=== PATIENT | female | born 1975 | race Caucasian/White ===

== ENCOUNTER 2019-04-06 09:32 | Inpatient (IN) | payer SELFPAY ==
[~2019-04-06] VITALS: Ht 172.7 cm; Wt 97.7 kg
[2019-04-06 10:20] LABS: Urine Amorphous Crystal FEW /hpf (None Seen); Urine Bacteria NONE SEEN /hpf (None Seen); Urine Blood Negative /uL (Negative); Urine Hyaline Cast MOD /lpf (0 - 2); Urine Mucus FEW (None Seen); Urine Specific Gravity 1.023 (1.001-1.035); Urine WBC 6 /hpf (0 - 5)
[2019-04-06 10:21] LABS: Hemoglobin 12.3 g/dL (12.2-16.2); Mean Corpuscular Hgb Conc. 33.4 g/dL (32.0-36.0)
[2019-04-06 10:23] LABS: Basophils # (auto) 0.4 uL; Basophils % (auto) 1.2 % (0.0-2.0); Eosinophils # (auto) 0.1 uL; Eosinophils % (auto) 0.3 % (0.0-7.0); Lymphocytes # (auto) 3.4 uL; Lymphocytes % (auto) 10.9 % (10.0-50.0); Mean Corpuscular Volume 110.9 fL (80.0-100.0); Monocytes # (auto) 2.2 uL; Monocytes % (auto) 7.1 % (0.0-12.0); Neutrophils % (auto) 80.5 % (37.0-80.0); Nucleated Red Blood Cells % 0.3 %; Platelet Count (auto) 296 10^3/uL (140-450); Red Blood Cells 3.33 10^6/uL (4.0-5.20); Red Cell Distribution Width 16.8 % (11.8-14.3)
[2019-04-06 10:29] LABS: White Blood Cell 31.1 10^3/uL (4.4-10.8)
[2019-04-06 10:45] LABS: Albumin 1.7 g/dL (3.4-5.0); Calcium 7.3 mg/dL (8.5-10.1)
[2019-04-06 10:48] LABS: BUN/Creatinine Ratio 4.8; Bilirubin, Total 13.9 mg/dL (0.2-1.0); Total Protein 6.7 g/dL (6.4-8.2)
[2019-04-06 10:52] LABS: Potassium 2.4 mmol/L (3.5-5.1)
[2019-04-06] MEDS ORDERED: SODIUM CHLORIDE 0.9% 1,000 ML IV ONE (10:59)
[2019-04-06 11:22] LABS: Magnesium 1.8 mg/dL (1.6-2.6)
[2019-04-06 11:28] LABS: Lactic Acid w/Reflex 3.5 mmol/L (0.4-2.0)
[2019-04-06 11:30] LABS: INR 2.93 (0.9-1.15); Partial Thromboplastin Time 34.9 sec (23.64-32.05)
[2019-04-06] MEDS ORDERED: cefTRIAXone 1GM/50ML D5W 50 ML IV ONE ×2 (12:11→12:15)
[2019-04-06] MEDS ORDERED: LACTULOSE 20Gm/30ML SOLN PO ONE (12:30)
[2019-04-06] MEDS ORDERED: FUROSEMIDE 40 MG/4 ML VIAL IV ONE (12:30)
[2019-04-06] MEDS ORDERED: POTASSIUM CHLORIDE 40 MEQ, LIDOCAINE 1% (LOCAL ANESTH.) 4 ML in SODIUM CHL 0.9% 100 ML IV ONE (12:45)
[2019-04-06] MEDS ORDERED: ACETAMINOPHEN 500 MG TAB PO PRN (13:30)
[2019-04-06] MEDS ORDERED: MORPHINE SULF INJ 2 MG/ML SYRINGE 1ML IV PRN (13:30)
[2019-04-06] MEDS ORDERED: NITROGLYCERIN 0.4 MG SL TAB SL PRN (13:30)
[2019-04-06] MEDS ORDERED: ONDANSETRON HCL 4 MG/2 ML VIAL IV PRN (13:30)
[2019-04-06] MEDS: metroNIDAZOLE 500MG/100ML 100 ML IV SCH ×2 (14:00→22:00)
[2019-04-06] MEDS ORDERED: AZITHROMYCIN 500MG/ 250ML 250 ML IV SCH (14:34)
[2019-04-06] MEDS: FOLIC ACID 1 MG, MULTIPLE VITAMIN 10 ML, MAGNESIUM SULF SDV 50% 8 MEQ, THIAMINE INJ 100... INJ SCH ×5 (15:07)
--- NOTE | 2019-04-06 16:15 | NUR ---
Telemetry admit from ER Verbal report received from YANCY Johnston, ER nurse. Patient is awake, alert and oriented X4. No signs or symptoms of distress, shortness of breath or pain. Tele# 33, sinus tachycardia @ 121 bpm. IV to left hand, 20 gauge, patent and infusing Banana bag @ 125 ml/hr. Instructed on plan of care, verbalized understanding. Bed locked, in lowest position, call light within reach, will continue to monitor Q 1 hour and PRN.
[2019-04-06 16:17] LABS: Amphetamine Screen, Urine NEGATIVE (NEGATIVE); Barbiturate Scree,Urine NEGATIVE (NEGATIVE); Cannabinoid Screen, Urine NEGATIVE (NEGATIVE)
[2019-04-06 16:20] LABS: Benzodiazephine Screen, Urine NEGATIVE (NEGATIVE); Cocaine Screen, Urine NEGATIVE (NEGATIVE); Opiate Scree,Urine NEGATIVE (NEGATIVE); Phencyclidine Screen, Urine NEGATIVE (NEGATIVE)
[2019-04-06 16:24] VITALS: BP 129/66
[2019-04-06 16:55] VITALS: BP 129/66
[2019-04-06] MEDS: PENTOXIFYLLINE 400 MG ER TAB PO SCH (17:50)
--- NOTE | 2019-04-06 18:47 | NUR ---
TESS BECK states they want to leave the floor Against Medical Advice (AMA) to go outside and smoke. Patient encouraged to stay on floor and not smoke. Patient advised of the risks and benefits of leaving AMA. Patient verbalized understanding and signed required AMA form.
--- NOTE | 2019-04-06 19:15 | NUR ---
Opening Shift Note Received report from carolyn Lobato RN. Assumed care of patient, awake and alert. No S/S of distress/SOB or pain. Instructed on POC and to call for assist PRN, will continue to monitor for changes Q1hr and PRN. Bed placed in lowest position, bed alarm turned on and call light within reach.
[2019-04-06 20:00] VITALS: BP 147/103
[2019-04-06 22:00] VITALS: BP 120/61
[2019-04-06] MEDS ORDERED: FAMOTIDINE (10MG/ML) 2ML VL IV SCH (22:00)
[2019-04-06] MEDS: LACTULOSE 20Gm/30ML SOLN PO SCH (22:01)
--- NOTE | 2019-04-06 23:15 | NUR ---
INFLUENZA A & B SPECIMEN AND STREP THROAT SPECIMEN SENT TO LAB.
[2019-04-07] MEDS: MORPHINE SULF INJ 2 MG/ML SYRINGE 1ML IV PRN ×2 (02:05→22:58)
[2019-04-07 05:00] VITALS: BP 120/52
[2019-04-07 05:53] LABS: Hemoglobin 10.4 g/dL (12.2-16.2); Mean Corpuscular Hemoglobin 37.5 pg (28.0-32.0); Mean Corpuscular Hgb Conc. 33.7 g/dL (32.0-36.0); Mean Corpuscular Volume 111.3 fL (80.0-100.0); Platelet Count (auto) 247 10^3/uL (140-450); Red Blood Cells 2.78 10^6/uL (4.0-5.20); Red Cell Distribution Width 16.1 % (11.8-14.3); White Blood Cell 26.5 10^3/uL (4.4-10.8)
[2019-04-07 05:54] LABS: Basophils % (manual) 0 (0.0-2.0); Blast Cells 0; Eosinophils % (manual) 0 (0-7); Metamyelocytes % 0; Myelocytes % 0; Promyelocytes % 0; Reactive Lymphocytes 0
[2019-04-07 06:09] LABS: Albumin 1.4 g/dL (3.4-5.0); Calcium 6.5 mg/dL (8.5-10.1)
[2019-04-07 06:12] LABS: BUN/Creatinine Ratio 9.4; Bilirubin, Total 12.4 mg/dL (0.2-1.0); Total Protein 5.7 g/dL (6.4-8.2)
[2019-04-07] MEDS: metroNIDAZOLE 500MG/100ML 100 ML IV SCH (06:26)
--- NOTE | 2019-04-07 06:45 | NUR ---
ARI DYSON FROM LAB REPORTS A POTASSIUM OF 2.0. HOSPITALIST PAGED. AWAITING CALL BACK.
--- NOTE | 2019-04-07 06:50 | NUR ---
CALLED BACK AND RECEIVED AN ORDER FOR POTASSIUM 60MG PO ONE TIME. ORDER NOTED. Addendum: 04/07/19 at 0710 by MERVIN YOUNG RN RN 60 MEQ POTASSIUM TIMES ONE DOSE PO
[2019-04-07] MEDS ORDERED: POTASSIUM CHL 20 Meq TABLET PO ONE ×2 (07:00→20:00)
[2019-04-07 07:08] LABS: Band Neutrophils % (manual) 4; Lymphocytes % (manual) 8 (10.0-50.0); Monocytes % (manual) 10 (0-12)
[2019-04-07 08:40] VITALS: BP 110/62
[2019-04-07] MEDS: PENTOXIFYLLINE 400 MG ER TAB PO SCH ×3 (09:13→18:23)
[2019-04-07] MEDS ORDERED: POTASSIUM CHLORIDE 60 MEQ, LIDOCAINE 1% (LOCAL ANESTH.) 6 ML in SODIUM CHL 0.9% 500 ML IV ONE (10:30)
[2019-04-07] MEDS ORDERED: cefTRIAXone 1GM/50ML D5W 50 ML IV ONE (10:30)
[2019-04-07] MEDS: LACTULOSE 20Gm/30ML SOLN PO SCH (11:50)
--- NOTE | 2019-04-07 11:50 | NUR ---
ROUNDS Dr Daly at bedside for rounds, new orders received and followed through. Patient updated on plan of care, verbalized understanding.
[2019-04-07] MEDS: FAMOTIDINE 20 MG TAB PO SCH (11:51)
--- NOTE | 2019-04-07 11:55 | NUR ---
GI Dr Borthers at bedside for rounds, new orders received and followed through. Patient updated on plan of care, verbalized understanding.
[2019-04-07] MEDS ORDERED: LEVOTHYROXINE SODIUM 25 MCG TAB PO ONE (12:00)
[2019-04-07] MEDS: FOLIC ACID 1 MG, MULTIPLE VITAMIN 10 ML, MAGNESIUM SULF SDV 50% 8 MEQ, THIAMINE INJ 100... INJ SCH ×5 (12:00)
[2019-04-07 12:11] LABS: Acetaminophen < 2.0 ug/mL (10-30); Salicylate < 0.2 mg/dL (2.8-20.0)
[2019-04-07 12:56] VITALS: BP 103/52
[2019-04-07] MEDS ORDERED: IOHEXOL 300 MG/ML 100ML BOTTLE IJ ONE (14:45)
[2019-04-07 17:06] VITALS: BP 117/65
[2019-04-07] MEDS: MAGNESIUM SULFATE 1GM/100ML 100 ML IV SCH ×4 (18:23→22:21)
[2019-04-07] MEDS ORDERED: MAGNESIUM SULFATE 1GM/100ML 100 ML IV ONE (18:34)
--- NOTE | 2019-04-07 18:46 | NUR ---
K+ Dr Daly informed of K+ 2.3, new order for P.O. KCL.
--- NOTE | 2019-04-07 19:00 | NUR ---
Opening Shift Note Assumed care of patient, awake and alert. No S/S of distress/SOB or pain. Instructed on POC and to call for assist PRN, will continue to monitor for changes Q1hr and PRN.
--- NOTE | 2019-04-07 19:20 | NUR ---
Care endorsed to YANCY So, night nurse.
--- NOTE | 2019-04-07 21:30 | NUR ---
Hospitalist paged: Hospitalist paged d/t patient stating she would like medication to help with insomnia d/t her having some difficulty sleeping last night. Hospitalist was paged and page was returned immediately. Hospitalist informed of patient's condition and situation. New order received and verified.
[2019-04-07 21:43] VITALS: BP 121/69
[2019-04-07] MEDS ORDERED: TEMAZEPAM 15 MG CAP PO PRN (21:45)
--- NOTE | 2019-04-08 03:47 | NUR ---
IV pulled out: Patient accidentally pulled out Right FA 20g IV. RN noted IV to be intact. Patient in no current distress or discomfort.
[2019-04-08 04:41] VITALS: BP 131/70
[2019-04-08 05:08] LABS: White Blood Cell 25.7 10^3/uL (4.4-10.8)
[2019-04-08 05:11] LABS: Hematocrit 29.6 % (36.0-46.0); Mean Corpuscular Hemoglobin 37.7 pg (28.0-32.0); Mean Corpuscular Hgb Conc. 33.8 g/dL (32.0-36.0); Mean Corpuscular Volume 111.5 fL (80.0-100.0); Platelet Count (auto) 263 10^3/uL (140-450); Red Blood Cells 2.66 10^6/uL (4.0-5.20); Red Cell Distribution Width 15.7 % (11.8-14.3)
[2019-04-08 05:17] LABS: Basophils % (manual) 0 (0.0-2.0); Blast Cells 0; Eosinophils % (manual) 0 (0-7); Metamyelocytes % 0; Myelocytes % 0; Promyelocytes % 0; Reactive Lymphocytes 0
[2019-04-08 05:23] LABS: INR 1.93 (0.9-1.15)
[2019-04-08 05:30] LABS: Albumin 1.4 g/dL (3.4-5.0); Calcium 6.6 mg/dL (8.5-10.1); Magnesium 2.3 mg/dL (1.6-2.6)
[2019-04-08 05:32] LABS: BUN/Creatinine Ratio 7.4
[2019-04-08 05:34] LABS: Bilirubin, Total 14.1 mg/dL (0.2-1.0); Total Protein 5.7 g/dL (6.4-8.2)
[2019-04-08 05:51] LABS: Potassium 2.6 mmol/L (3.5-5.1)
--- NOTE | 2019-04-08 05:55 | NUR ---
Critical lab support tech notified by lab of critical potassium of 2.6. Hospitalist paged, awaiting call back.
[2019-04-08 06:00] LABS: Band Neutrophils % (manual) 9; Lymphocytes % (manual) 6 (10.0-50.0); Monocytes % (manual) 11 (0-12)
--- NOTE | 2019-04-08 06:17 | NUR ---
Hospitalist returned page: Hospitalist returned page. Hospitalist updated on patient condition and situation. New orders received and verified.
[2019-04-08] MEDS ORDERED: POTASSIUM CHL 20 Meq TABLET PO ONE ×2 (06:30→10:15)
[2019-04-08] MEDS: LEVOTHYROXINE SODIUM 25 MCG TAB PO SCH (06:33)
--- NOTE | 2019-04-08 07:15 | NUR ---
Opening Shift Note Assumed care of patient, awake and alert. No S/S of distress/SOB or pain. Instructed on POC and to call for assist PRN, will continue to monitor for changes Q1hr and PRN. Fall precautions in place per safety protocol.
[2019-04-08] MEDS: PENTOXIFYLLINE 400 MG ER TAB PO SCH ×3 (08:21→20:03)
[2019-04-08 09:00] VITALS: BP 119/69
[2019-04-08] MEDS ORDERED: cefTRIAXone 1GM/50ML D5W 50 ML IV SCH (09:00)
[2019-04-08] MEDS: LACTULOSE 20Gm/30ML SOLN PO SCH (10:00)
[2019-04-08] MEDS: AZITHROMYCIN 500MG/ 250ML 250 ML IV SCH (10:10)
[2019-04-08] MEDS: FAMOTIDINE 20 MG TAB PO SCH (10:11)
[2019-04-08] MEDS ORDERED: POTASSIUM CHLORIDE 60 MEQ, LIDOCAINE 1% (LOCAL ANESTH.) 6 ML in SODIUM CHL 0.9% 500 ML IV ONE (10:15)
[2019-04-08 10:17] LABS: Hepatitis A Ab IgM Negative; Hepatitis B Core IgM Negative; Hepatitis B Surface Antigen Negative (Negative)
[2019-04-08 10:18] LABS: Hepatitis C Antibody Negative (Negative)
[2019-04-08 13:00] VITALS: BP 97/58
[2019-04-08] MEDS ORDERED: VANCOMYCIN PER PHARMACY 0 MG IV SCH (14:00)
[2019-04-08] MEDS ORDERED: KETOROLAC TROMETH 30 MG/ML 1ML VIAL IV PRN (14:00)
[2019-04-08] MEDS ORDERED: SPIRONOLACTONE 25 MG TAB PO ONE (14:00)
--- NOTE | 2019-04-08 14:00 | NUR ---
HOSPITALIST AT BEDSIDE MD PLATT AT BEDSIDE, AWARE OF PATIENT STATUS. NEW ORDERS RECEIVED, WILL CARRY OUT NEW ORDERS AND WILL CONT TO CARE FOR PATIENT.
[2019-04-08] MEDS: PIPERACILLIN-TAZO 4.5GM 100 ML IV SCH ×2 (15:00→22:04)
[2019-04-08] MEDS ORDERED: VANCOMYCIN 1,500 MG in D5W 5% 250 ML IV ONE (16:00)
[2019-04-08 17:37] VITALS: BP 121/60
[2019-04-08] MEDS: VANCOMYCIN 1GM/250ML 250 ML IV SCH (18:00)
--- NOTE | 2019-04-08 19:05 | NUR ---
Opening Shift Note Assumed care of patient, awake and alert. No S/S of distress/SOB or pain. Bed in lowest locked position, side rails up x2, call light within reach. Instructed on POC and to call for assist PRN, will continue to monitor for changes Q1hr and PRN. Addendum: 04/09/19 at 0006 by TAMEKA SCHREIBER RN RN CORRECTION: Time of note should be 19:15
--- NOTE | 2019-04-08 19:15 | NUR ---
Endorsed care Care endorsed to RN Jeannette. Patient is resting in bed at this time, no signs of distress/sob or pain noted at this time.
--- NOTE | 2019-04-08 20:00 | NUR ---
IV insertion IV access obtained, via clean sterile technique by inserting 22 gauge catheter to patient's right forearm after one attempt by Judah HAINES. IV secured properly. No trauma to site. Patient tolerated well. IV to left hand remains patent and asymptomatic, continues to run ordered Potassium. Per dayshift RN report, unable to administer ordered 15:00 Zosyn and 18:00 Vancomycin as ordered (see emar) due to patient going down to smoke and inability to obtain second venous access during that time. Will administer antibiotics as ordered through right forearm IV and continue to monitor Potassium administration. Will continue care.
[2019-04-08] MEDS: HYDROcodone-ACET 5/325MG TAB PO PRN (22:03)
[2019-04-08 22:20] VITALS: BP 106/59
--- NOTE | 2019-04-09 02:00 | NUR ---
Spoke with billing control clerk pharmacy regarding ordered electrolyte bag administration. Per pharmacy, ok to give now. Will administer and continue to monitor.
[2019-04-09] MEDS: VANCOMYCIN 1GM/250ML 250 ML IV SCH ×3 (02:03→18:34)
[2019-04-09] MEDS: FOLIC ACID 1 MG, MULTIPLE VITAMIN 10 ML, MAGNESIUM SULF SDV 50% 8 MEQ, THIAMINE INJ 100... INJ SCH ×10 (02:04→15:30)
--- NOTE | 2019-04-09 03:00 | NUR ---
IV removal IV to left hand noted to be leaking. IV DC'd with clean sterile technique, catheter fully intact. Pressure dressing applied to site. Patient tolerated well. IV access attempted by Judah HAINES, unable to obtain at this time. Ordered electrolytes infusing through right forearm IV. Will continue to attempt IV insertion for ordered antibiotics. 03:00 Zosyn held at this time. Will continue care.
[2019-04-09] MEDS: HYDROcodone-ACET 5/325MG TAB PO PRN (04:03)
[2019-04-09] MEDS: LEVOTHYROXINE SODIUM 25 MCG TAB PO SCH (05:06)
[2019-04-09] MEDS: PIPERACILLIN-TAZO 4.5GM 100 ML IV SCH ×4 (05:06→20:48)
[2019-04-09 05:22] VITALS: BP 105/63
--- NOTE | 2019-04-09 05:50 | NUR ---
IV insertion IV access obtained by Nikki HAINES via clean sterile technique by inserting 22 gauge catheter to patient's right forearm after one attempt. IV secured properly. No trauma to site. Patient tolerated well. Zosyn infusing via this IV, patient tolerating well.
--- NOTE | 2019-04-09 05:55 | NUR ---
Patient requesting to have levothyroxine early as she "has not slept all night". Will administer medication early and continue to monitor.
--- NOTE | 2019-04-09 06:20 | NUR ---
IV removal IV to right forearm noted to have been discontinued by patient "while [she] was asleep." Catheter noted to be fully intact. Pressure dressing applied to site. Patient tolerated well. Patient refusing to have IV start at this time, requesting to be disconnected from infusing electrolytes to go down to smoke. Will make dayshift RN aware. No s/s of distress noted on departure from unit. Will continue care.
[2019-04-09 06:41] LABS: Hemoglobin 9.8 g/dL (12.2-16.2); Nucleated Red Blood Cells % 0.1 %
[2019-04-09 06:44] LABS: Basophils # (auto) 0.1 uL; Basophils % (auto) 0.5 % (0.0-2.0); Eosinophils # (auto) 0.1 uL; Eosinophils % (auto) 0.4 % (0.0-7.0); Hematocrit 29.7 % (36.0-46.0); Lymphocytes # (auto) 3.7 uL; Mean Corpuscular Hemoglobin 37.8 pg (28.0-32.0); Mean Corpuscular Volume 114.6 fL (80.0-100.0); Monocytes # (auto) 2.2 uL; Neutrophils # (auto) 18.6 uL; Neutrophils % (auto) 75.1 % (37.0-80.0); Platelet Count (auto) 264 10^3/uL (140-450); Red Cell Distribution Width 16.5 % (11.8-14.3); White Blood Cell 24.7 10^3/uL (4.4-10.8)
[2019-04-09 07:05] LABS: Potassium 3.7 mmol/L (3.5-5.1)
--- NOTE | 2019-04-09 07:10 | NUR ---
Closing Note Patient lying in bed, awake and alert. Bed in lowest locked position, side rails up x2, call light within reach. No s/s of distress. Care endorsed to dayshift RN.
[2019-04-09 07:15] LABS: Albumin 1.5 g/dL (3.4-5.0); BUN/Creatinine Ratio 5.2; Calcium 6.6 mg/dL (8.5-10.1); Total Protein 5.9 g/dL (6.4-8.2)
--- NOTE | 2019-04-09 07:40 | NUR ---
Opening Shift Note Assumed care of patient, patient is comfortably sleeping , breath sounds even and unlabored, on room air. No S/S of distress/SOB or pain. Instructed on POC and to call for assist PRN. Bed at lowest locked position, bed side rails up x2 and call light within reach. Will continue to monitor for changes Q1hr and PRN.
[2019-04-09 08:00] VITALS: BP 96/56
[2019-04-09] MEDS: PENTOXIFYLLINE 400 MG ER TAB PO SCH ×3 (08:00→18:34)
[2019-04-09 08:06] VITALS: BP 96/56
[2019-04-09] MEDS: AZITHROMYCIN 500MG/ 250ML 250 ML IV SCH (09:02)
[2019-04-09] MEDS: FAMOTIDINE 20 MG TAB PO SCH (09:08)
--- NOTE | 2019-04-09 09:10 | NUR ---
Patient is requesting to go outside to smoke, patient signed AMA to smoke. Patient is refusing to wear slip resistant socks.
[2019-04-09] MEDS: SPIRONOLACTONE 25 MG TAB PO SCH (09:11)
--- NOTE | 2019-04-09 11:49 | NUR ---
Nutrition Assessment Notes please see attached link for complete assessment Est. Needs BW 86 [id number] kcal (23-25 kcal/kgBW), 51-68 gms pro (0.6-0.8gms/kgBW r/t elev ammonia, severe hypoaln). Will continue to monitor pertinent labs and reassess nutrient need prn Addendum: 04/09/19 at [address] Amended: Links added.
[2019-04-09] MEDS: LACTULOSE 20Gm/30ML SOLN PO SCH (12:08)
[2019-04-09 12:19] VITALS: BP 98/56
--- NOTE | 2019-04-09 14:20 | NUR ---
Patient went outside to smoke. Anti-slip socks provided for safety.
[2019-04-09 16:41] VITALS: BP 120/71
--- NOTE | 2019-04-09 17:52 | NUR ---
Patient is refusing IV fluids at the moment. Patient wants to go down and smoke. Education provided.
--- NOTE | 2019-04-09 19:20 | NUR ---
Closing Note Patient is comfortably sitting up in bed, IV antibiotics is running, no c/o pain, no s/s of distress.No c/o pain. Bed is at lowest locked position, bedside rails up x2 and call light within reach. Will endorse care to NOC.
--- NOTE | 2019-04-09 19:30 | NUR ---
OPENING SHIFT NOTE ASSUMED CARE OF PATIENT AWAKE AND ALERT X4. NO S/S OF DISTRESS OR SOB. NO COMPLAINTS OF PAIN AT THIS TIME. BED IN LOWEST LOCKED POSITION, SIDERAILS UPX2, CALL LIGHT WITHIN REACH. UPDATED PATIENT ON POC AND TO CALL FOR ASSISTANCE PRN, PATIENT VERBALIZED UNDERSTANDING. WILL CONTINUE TO MONITOR Q1H AND PRN.
--- NOTE | 2019-04-09 20:26 | NUR ---
PATIENT OFF UNIT TO SMOKE
[2019-04-09 22:00] VITALS: BP 103/65
[2019-04-10] MEDS: HYDROcodone-ACET 5/325MG TAB PO PRN ×3 (00:07→21:24)
--- NOTE | 2019-04-10 02:30 | NUR ---
PATIENT FOUND SMOKING IN ROOM. EDUCATED PATIENT ON THE DANGERS OF SMOKING INSIDE THE HOSPITAL. PATIENT VERBALIZED UNDERSTANDING. PUT PATIENTS CIGARETTES AND CARPET WEAVER AT NURSES STATION. NOTIFIED CHARGE NURSE AND SECURITY. MOVED PATIENT CLOSER TO NURSES STATION IN ROOM 219B.
[2019-04-10] MEDS: VANCOMYCIN 1GM/250ML 250 ML IV SCH ×3 (02:58→18:18)
[2019-04-10] MEDS: PIPERACILLIN-TAZO 4.5GM 100 ML IV SCH ×4 (04:15→21:14)
[2019-04-10 05:00] VITALS: BP 101/54
--- NOTE | 2019-04-10 05:56 | NUR ---
PATIENT OFF UNIT TO SMOKE.
--- NOTE | 2019-04-10 06:20 | NUR ---
PATIENT BACK IN ROOM RESTING IN BED.
[2019-04-10] MEDS: LEVOTHYROXINE SODIUM 25 MCG TAB PO SCH (06:33)
--- NOTE | 2019-04-10 07:30 | NUR ---
Opening Shift Note RECEIVED REPORT FROM NOC RN. Assumed care of patient, awake and alert. No S/S of distress/SOB or pain. BED IN LOWEST, LOCKED POSITION WITH SIDERAILS UP x2 AND CALL LIGHT WITHIN REACH. Instructed on POC and to call for assist PRN, will continue to monitor for changes Q1hr and PRN.
[2019-04-10] MEDS: PENTOXIFYLLINE 400 MG ER TAB PO SCH ×3 (08:40→18:30)
--- NOTE | 2019-04-10 08:42 | NUR ---
DR. Katie OLMEDO AT BEDSIDE.
[2019-04-10] MEDS: AZITHROMYCIN 500MG/ 250ML 250 ML IV SCH (09:07)
[2019-04-10] MEDS: LACTULOSE 20Gm/30ML SOLN PO SCH (09:31)
[2019-04-10 09:32] VITALS: BP 79/47
[2019-04-10] MEDS: FAMOTIDINE 20 MG TAB PO SCH (09:32)
[2019-04-10] MEDS: SPIRONOLACTONE 25 MG TAB PO SCH (09:32)
--- NOTE | 2019-04-10 10:35 | NUR ---
PATIENT ACCIDENTALLY CAUGHT RIGHT FOREARM IV IN CLOTHING AND PULLED IT OUT. CATHETER INSPECTED AND IS FULLY INTACT.
--- NOTE | 2019-04-10 10:40 | NUR ---
IV insertion IV access obtained, via clean sterile technique by inserting 22 gauge catheter at LEFT FOREARM after 2 attempt(s). IV secured properly. No trauma to site. Patient tolerated well.
[2019-04-10] MEDS: FOLIC ACID 1 MG, MULTIPLE VITAMIN 10 ML, MAGNESIUM SULF SDV 50% 8 MEQ, THIAMINE INJ 100... INJ SCH ×5 (13:57)
[2019-04-10 14:15] VITALS: BP 105/53
[2019-04-10 16:41] VITALS: BP 109/58
--- NOTE | 2019-04-10 17:53 | NUR ---
PATIENT OFF UNIT TO SMOKE.
[2019-04-10 22:00] VITALS: BP 101/53
[2019-04-10] MEDS: MORPHINE SULF INJ 2 MG/ML SYRINGE 1ML IV PRN (23:15)
[2019-04-11] MEDS: VANCOMYCIN 1GM/250ML 250 ML IV SCH ×3 (01:23→17:58)
[2019-04-11] MEDS: PIPERACILLIN-TAZO 4.5GM 100 ML IV SCH ×4 (02:39→22:12)
[2019-04-11] MEDS: HYDROcodone-ACET 5/325MG TAB PO PRN ×2 (03:29→22:21)
[2019-04-11 04:54] VITALS: BP 103/57
[2019-04-11 06:38] LABS: Basophils # (auto) 0.2 uL; Basophils % (auto) 1.1 % (0.0-2.0); Eosinophils # (auto) 0.1 uL; Hemoglobin 9.3 g/dL (12.2-16.2); Mean Corpuscular Hemoglobin 38.5 pg (28.0-32.0); Mean Corpuscular Hgb Conc. 33.4 g/dL (32.0-36.0); Mean Corpuscular Volume 115.2 fL (80.0-100.0); Monocytes # (auto) 2.1 uL; Nucleated Red Blood Cells % 0.1 %; Red Cell Distribution Width 17.5 % (11.8-14.3)
[2019-04-11 06:39] LABS: Eosinophils % (auto) 0.7 % (0.0-7.0); Hematocrit 27.8 % (36.0-46.0); Lymphocytes # (auto) 2.7 uL; Lymphocytes % (auto) 13.7 % (10.0-50.0); Monocytes % (auto) 10.7 % (0.0-12.0); Neutrophils # (auto) 14.4 uL; Neutrophils % (auto) 73.8 % (37.0-80.0); Platelet Count (auto) 280 10^3/uL (140-450); Red Blood Cells 2.41 10^6/uL (4.0-5.20); White Blood Cell 19.5 10^3/uL (4.4-10.8)
[2019-04-11] MEDS: LEVOTHYROXINE SODIUM 25 MCG TAB PO SCH (06:41)
[2019-04-11 06:52] LABS: Albumin 1.4 g/dL (3.4-5.0)
[2019-04-11 06:57] LABS: BUN/Creatinine Ratio 5.1; Bilirubin, Total 14.8 mg/dL (0.2-1.0); Total Protein 5.4 g/dL (6.4-8.2)
--- NOTE | 2019-04-11 07:09 | NUR ---
OPENING SHIFT NOTES Assumed care of patient from planning management it specialist RN. Patient is alert and orientedx4, no signs of distress noted. Patient was updated on the plan of care and verbalized understanding. Yellowing of the eyes and skin noted. Bed is locked in the lowest position, call light is in reach and side rails upx2. Patient was encouraged to call for assistance.
--- NOTE | 2019-04-11 07:35 | NUR ---
Critical lab value, Hospitalist paged. Notified my Ramona from the lab of critical potassium value of 2.9 Hospitalist paged, awaiting call back.
[2019-04-11 07:36] LABS: Potassium 2.9 mmol/L (3.5-5.1)
[2019-04-11] MEDS: PENTOXIFYLLINE 400 MG ER TAB PO SCH ×3 (08:32→17:57)
--- NOTE | 2019-04-11 08:42 | NUR ---
Patient AMA to smoke
[2019-04-11 09:00] VITALS: BP 102/60
--- NOTE | 2019-04-11 09:01 | NUR ---
Patient returned to Room
[2019-04-11] MEDS ORDERED: POTASSIUM CHLORIDE 60 MEQ, LIDOCAINE 1% (LOCAL ANESTH.) 6 ML in SODIUM CHL 0.9% 500 ML IV ONE (09:45)
[2019-04-11] MEDS ORDERED: POTASSIUM CHL 20 Meq TABLET PO ONE (09:45)
[2019-04-11] MEDS: MAGNESIUM SULFATE 1GM/100ML 100 ML IV SCH ×2 (10:00→11:00)
[2019-04-11] MEDS: FAMOTIDINE 20 MG TAB PO SCH (10:27)
[2019-04-11] MEDS: LACTULOSE 20Gm/30ML SOLN PO SCH (10:29)
[2019-04-11] MEDS: SPIRONOLACTONE 25 MG TAB PO SCH (10:29)
[2019-04-11] MEDS: AZITHROMYCIN 500MG/ 250ML 250 ML IV SCH (11:38)
[2019-04-11] MEDS ORDERED: FUROSEMIDE 40 MG/4 ML VIAL IV ONE (12:30)
[2019-04-11 13:00] VITALS: BP 93/62
[2019-04-11 17:00] VITALS: BP 112/54
--- NOTE | 2019-04-11 19:19 | NUR ---
Closing Shift notes Care endorsed to environmental studies program director RN.
--- NOTE | 2019-04-11 19:45 | NUR ---
Opening Shift Note Assumed care of patient, awake and alert. No S/S of distress/SOB noted. Instructed on POC and to call for assist PRN. Bed is in lowest locked position with bed rails up x2 and call light is within reach of the patient.
[2019-04-11] MEDS: MORPHINE SULF INJ 2 MG/ML SYRINGE 1ML IV PRN (23:45)
[2019-04-12] MEDS: VANCOMYCIN 1GM/250ML 250 ML IV SCH ×4 (01:52→21:13)
[2019-04-12] MEDS: PIPERACILLIN-TAZO 4.5GM 100 ML IV SCH ×4 (03:17→22:12)
[2019-04-12 05:02] VITALS: BP 104/60
[2019-04-12 05:56] LABS: Eosinophils # (auto) 0.1 uL; Mean Corpuscular Volume 115.2 fL (80.0-100.0)
[2019-04-12 05:58] LABS: Basophils # (auto) 0.1 uL; Basophils % (auto) 0.8 % (0.0-2.0); Eosinophils % (auto) 0.8 % (0.0-7.0); Hematocrit 29.3 % (36.0-46.0); Hemoglobin 9.8 g/dL (12.2-16.2); Lymphocytes # (auto) 2.5 uL; Lymphocytes % (auto) 14.4 % (10.0-50.0); Mean Corpuscular Hemoglobin 38.7 pg (28.0-32.0); Mean Corpuscular Hgb Conc. 33.6 g/dL (32.0-36.0); Monocytes # (auto) 2.1 uL; Monocytes % (auto) 11.8 % (0.0-12.0); Neutrophils # (auto) 12.8 uL; Neutrophils % (auto) 72.2 % (37.0-80.0); Platelet Count (auto) 311 10^3/uL (140-450); Red Blood Cells 2.54 10^6/uL (4.0-5.20); Red Cell Distribution Width 17.5 % (11.8-14.3); White Blood Cell 17.7 10^3/uL (4.4-10.8)
[2019-04-12 06:05] LABS: Potassium 3.4 mmol/L (3.5-5.1)
[2019-04-12 06:08] LABS: INR 1.74 (0.9-1.15); Partial Thromboplastin Time 33.2 sec (23.64-32.05)
[2019-04-12 06:16] LABS: Albumin 1.4 g/dL (3.4-5.0); BUN/Creatinine Ratio 5.1; Bilirubin, Total 15.4 mg/dL (0.2-1.0); Magnesium 1.5 mg/dL (1.6-2.6); Total Protein 5.5 g/dL (6.4-8.2)
[2019-04-12] MEDS: HYDROcodone-ACET 5/325MG TAB PO PRN ×2 (06:43→21:03)
[2019-04-12] MEDS: LEVOTHYROXINE SODIUM 25 MCG TAB PO SCH (06:43)
[2019-04-12 08:00] VITALS: BP 94/48
[2019-04-12] MEDS: PENTOXIFYLLINE 400 MG ER TAB PO SCH ×3 (08:00→17:21)
--- NOTE | 2019-04-12 10:07 | NUR ---
assessment Patient is a 43 year old female who is alert and oriented. Patients cognitive abilities are intact. Prior to admission patient lived home alone and functioned independently. Patient informed me she is able to care for her own ADLs. Per patient she will return home to her prior living arrangements post discharge and family will transport her home. Patient has no insurance. Patient has been assessed by Gerard Adrian of [facility]. Patient may qualify for Medi-vin if she brings back all her paperwork. I have provided patient with resources for [facility], Dr. Schulz, and [facility] urgent care for follow up visits. I have provided patient with a prescription card from community assistance program. Patient has no post discharge needs identified as of now. I informed patient she has a right to speak to a social sciences chair regarding all care. I informed patient she has a right to participate in any and all discharge planning. Patient does not have a POA and advanced directive. I have offered patient information on POA and advanced directives. I informed the patient the advantages and benefits of having an Advanced Directive. Patient verbalized understanding and agreed to discharge plan. Addendum: 04/12/19 at 1010 by Rena LORENZO Amended: Links added.
[2019-04-12] MEDS: AZITHROMYCIN 500MG/ 250ML 250 ML IV SCH (10:22)
[2019-04-12] MEDS: FOLIC ACID 1 MG TAB PO SCH (10:27)
[2019-04-12] MEDS: THIAMINE HCL 100 MG TAB PO SCH (10:27)
[2019-04-12] MEDS: FAMOTIDINE 20 MG TAB PO SCH (10:27)
[2019-04-12] MEDS: MULTIPLE VITAMINS W/ MINERALS TAB PO SCH (10:27)
[2019-04-12] MEDS: SPIRONOLACTONE 25 MG TAB PO SCH (10:28)
[2019-04-12] MEDS ORDERED: POTASSIUM CHLORIDE 40 MEQ, LIDOCAINE 1% (LOCAL ANESTH.) 4 ML in SODIUM CHL 0.9% 100 ML IV ONE (10:30)
[2019-04-12] MEDS: MAGNESIUM SULFATE 1GM/100ML 100 ML IV SCH ×3 (11:57→14:00)
[2019-04-12] MEDS: LACTULOSE 20Gm/30ML SOLN PO SCH (11:57)
[2019-04-12 12:00] VITALS: BP 102/57
[2019-04-12] MEDS ORDERED: FUROSEMIDE 40 MG/4 ML VIAL IV ONE (12:30)
[2019-04-12] MEDS ORDERED: IOHEXOL 300 MG/ML 100ML BOTTLE IJ ONE (12:39)
--- NOTE | 2019-04-12 13:38 | NUR ---
Nutrition Follow up Notes Pt wt is 97.7 kg today Pt`s weight is obese aeb 153% IBW and BMI of 32.7 kgm2 Pt was awake with with no family by bedside. Pt reported no discomfort or difficulties except for diarrhea which may due to the lactulose she has been given. Pts appetite is good, aeb average of 75% x4 of meals eaten per RN doc and pt confirmation. Pt current diet is 2g Sodium. Energy needs: 2150 kcals (23-25 kcals/kg BW) Protein needs: 68 (0.6-0.8 gm/kg BW) due to elev ammonia hyp Labs: Na 135 L, Pot 3.4 L, BUN 3 L, Ca 7.0 L, Mg 1.5 L, Bilirubin 15.4H, Alb 1.4 L Last BM: 2 on 06/13 Kenneth Scale: 20 low risk, no wounds PES Altered nutrition related lab values r.t current chronic medical condition aeb hypocalcemia, hyperbil, severe hypoalb elev ammonia Comments 1) consider hepatic diet 50 gm protein along with current diet as pt with elev ammonia 2) refer to OPD dietitian on DC 3) consider prostat 1 packet bid as ammonia improves 4) continue current plan of care
[2019-04-12 17:00] VITALS: BP 120/55
--- NOTE | 2019-04-12 17:25 | NUR ---
PT NOT RECEIVING ALL IV MEDICATIONS DUE TO LEAVING FLOOR TO SMOKE.
--- NOTE | 2019-04-12 19:18 | NUR ---
Called pharmacy regarding vanco trough: Called pharmacy regarding vanco trough update and if patient needs to get a redraw of vanco trough. Pharmacy said its still good to use same vanco trough result to give 2am dose. Last vanco trough was 14.1.
--- NOTE | 2019-04-12 19:30 | NUR ---
Opening Shift Note Assumed care of patient, awake and alert oriented x4. No S/S of distress/SOB or pain noted. Bed is in lowest locked position with bed rails up x2 and call light is within reach of the patient. Instructed on POC and to call for assist PRN.
--- NOTE | 2019-04-12 20:18 | NUR ---
Received call from pharmacy regarding vanco: Received call from Pharmacy stating that vanco needs to be rescheduled because of missed dose. Wanted to reschedule for now but patient wanted to go down and smoke a cigarette at this time before receiving cigarettes. Notified pharmacist. Will call back pharmacist once patient has returned to unit ready for vanco dose.
--- NOTE | 2019-04-12 20:39 | NUR ---
Patient off unit to smoke.
--- NOTE | 2019-04-12 20:57 | NUR ---
Called pharmacist, patient back on unit: Notified pharmacist that patient returned. Pharmacist to reschedule delfin schedule.
[2019-04-12 22:00] VITALS: BP 120/80
[2019-04-12] MEDS: MORPHINE SULF INJ 2 MG/ML SYRINGE 1ML IV PRN (23:06)
[2019-04-13] MEDS: PIPERACILLIN-TAZO 4.5GM 100 ML IV SCH ×4 (03:37→23:42)
[2019-04-13] MEDS: VANCOMYCIN 1GM/250ML 250 ML IV SCH (04:50)
[2019-04-13] MEDS: HYDROcodone-ACET 5/325MG TAB PO PRN ×2 (04:51→21:22)
[2019-04-13 04:54] VITALS: BP 129/68
[2019-04-13 05:56] LABS: Basophils # (auto) 0.2 uL; Basophils % (auto) 1.3 % (0.0-2.0); Eosinophils # (auto) 0.2 uL; Eosinophils % (auto) 1.2 % (0.0-7.0); Hematocrit 30.8 % (36.0-46.0); Hemoglobin 10.1 g/dL (12.2-16.2); Lymphocytes # (auto) 1.4 uL; Lymphocytes % (auto) 8.4 % (10.0-50.0); Mean Corpuscular Hgb Conc. 32.9 g/dL (32.0-36.0); Mean Corpuscular Volume 118.6 fL (80.0-100.0); Monocytes # (auto) 1.9 uL; Monocytes % (auto) 11.6 % (0.0-12.0); Neutrophils % (auto) 77.5 % (37.0-80.0); Nucleated Red Blood Cells % 0.1 %; Platelet Count (auto) 320 10^3/uL (140-450); Red Cell Distribution Width 17.8 % (11.8-14.3); White Blood Cell 16.7 10^3/uL (4.4-10.8)
[2019-04-13 06:10] LABS: INR 1.73 (0.9-1.15)
[2019-04-13] MEDS: LEVOTHYROXINE SODIUM 25 MCG TAB PO SCH (06:19)
[2019-04-13 06:20] LABS: Potassium 3.1 mmol/L (3.5-5.1)
[2019-04-13 06:28] LABS: Albumin 1.4 g/dL (3.4-5.0); BUN/Creatinine Ratio 4.8; Bilirubin, Total 14.8 mg/dL (0.2-1.0); Calcium 7.1 mg/dL (8.5-10.1); Magnesium 1.7 mg/dL (1.6-2.6); Total Protein 5.6 g/dL (6.4-8.2)
--- NOTE | 2019-04-13 07:30 | NUR ---
OPENING NOTE ASSUMED CARE OF PT. ALERT AND ORIENTED. NO S/S OF SOB/DISTRESS NOTED. DENIES ANY PAIN. SAFETY PRECAUTIONS IN PLACE. BED SET TO LOWEST POSITION/LOCKED, BEDSIDE RAILS UP X2, CALL LIGHT WITHIN REACH. INSTRUCTED PT TO CALL FOR ASSISTANCE. UPDATED PT ON POC. WILL CONTINUE TO MONITOR Q1HR AND PRN.
[2019-04-13 08:57] VITALS: BP 107/59
[2019-04-13] MEDS: FUROSEMIDE 20 MG/2 ML VIAL IV SCH (09:20)
[2019-04-13] MEDS: LACTULOSE 20Gm/30ML SOLN PO SCH (09:20)
[2019-04-13] MEDS: AZITHROMYCIN 500MG/ 250ML 250 ML IV SCH (09:20)
[2019-04-13] MEDS: PENTOXIFYLLINE 400 MG ER TAB PO SCH ×3 (09:21→18:33)
[2019-04-13] MEDS: MAGNESIUM OXIDE 400 MG TAB PO SCH (09:21)
[2019-04-13] MEDS: SPIRONOLACTONE 25 MG TAB PO SCH (09:21)
[2019-04-13] MEDS: MULTIPLE VITAMINS W/ MINERALS TAB PO SCH (09:21)
[2019-04-13] MEDS: THIAMINE HCL 100 MG TAB PO SCH (09:21)
[2019-04-13] MEDS: FAMOTIDINE 20 MG TAB PO SCH (09:21)
[2019-04-13] MEDS: FOLIC ACID 1 MG TAB PO SCH (09:21)
[2019-04-13] MEDS ORDERED: POTASSIUM CHL 20 Meq TABLET PO ONE (10:45)
[2019-04-13] MEDS ORDERED: POTASSIUM CHLORIDE 40 MEQ, LIDOCAINE 1% (LOCAL ANESTH.) 4 ML in SODIUM CHL 0.9% 100 ML IV ONE (10:45)
[2019-04-13] MEDS ORDERED: FUROSEMIDE 40 MG/4 ML VIAL IV ONE (11:15)
[2019-04-13] MEDS ORDERED: ALBUMIN 25% 100 ML IV ONE (11:15)
[2019-04-13 13:00] VITALS: BP 109/52
[2019-04-13] MEDS: MORPHINE SULF INJ 2 MG/ML SYRINGE 1ML IV PRN ×2 (13:13→22:44)
[2019-04-13 17:00] VITALS: BP 111/51
--- NOTE | 2019-04-13 17:22 | NUR ---
IV removal Patient c/o pain, Left hand 22 gauge IV cath DC'd with clean technique, catheter fully intact. Pressure dressing applied to site. Patient tolerated well.
[2019-04-13] MEDS ORDERED: VANCOMYCIN 1GM/250ML 250 ML IV SCH (18:00)
--- NOTE | 2019-04-13 19:30 | NUR ---
RECEIVED PATIENT FROM DAY SHIFT RN. PATIENT RESTING IN BED. NO S/S OF DISTRESS NOTED. NO PAIN NOTED. IV ANTIBIOTIC RUNNING WELL. BED IN LOWEST POSITION WITH SIDE RAILS UP X 2. CALL BENNETT WITHIN REACH. CONTINUE TO MONITOR FOR CHANGES Q1H AND PRN.
--- NOTE | 2019-04-13 20:26 | NUR ---
PHARMACY CALLED TO RESCHEDULE ANTIBIOTICS, WHICH WERE DELAYED BY DAY SHIFT RN SINCE PATIENT REFUSED TO HAVE SECOND IV ACCESS FOR MEDICATIONS. PHARMACIST VERBALIZED UNDERSTANDING. WILL RESCHEDULE IT. CONTINUE CARE.
--- NOTE | 2019-04-13 20:40 | NUR ---
PATIENT OFF FLOOR.
--- NOTE | 2019-04-13 21:06 | NUR ---
PATIENT BACK TO FLOOR. NO S/S OF DISTRESS NOTED.CONTINUE CARE.
[2019-04-13 21:54] VITALS: BP 116/69
[2019-04-13] MEDS: MAGNESIUM SULFATE 1GM/100ML 100 ML IV SCH (22:00)
--- NOTE | 2019-04-13 22:44 | NUR ---
PATIENT STILL C/O PAIN @ 12/04 AFTER NORCO GIVEN EARLIER. MEDICATED PATIENT ORDERED. CONTINUE TO MONITOR. Addendum: 04/13/19 at 2245 by Addie Pickett RN PATIENT'S BP 116/69, HR 119 AT THIS TIME
--- NOTE | 2019-04-14 01:39 | NUR ---
PATIENT OFF FLOOR TO SMOKE
--- NOTE | 2019-04-14 02:05 | NUR ---
PATIENT BACK TO FLOOR. NO S/S OF DISTRESS NOTED. CONTINUE TO MONITOR.
[2019-04-14] MEDS ORDERED: VANCOMYCIN 1GM/250ML 250 ML IV SCH (04:00)
[2019-04-14 04:34] VITALS: BP 92/60
[2019-04-14] MEDS: HYDROcodone-ACET 5/325MG TAB PO PRN ×2 (04:47→18:54)
--- NOTE | 2019-04-14 04:49 | NUR ---
PATIENT WOKE UP AND C/O PAIN @ 11/03. MEDICATED PATIENT ORDERED. CONTINUE TO MONITOR.
[2019-04-14] MEDS: PIPERACILLIN-TAZO 4.5GM 100 ML IV SCH ×3 (06:15→18:00)
[2019-04-14] MEDS: LEVOTHYROXINE SODIUM 25 MCG TAB PO SCH (06:15)
[2019-04-14 06:19] LABS: Basophils # (auto) 0.2 uL; Eosinophils # (auto) 0.2 uL; Eosinophils % (auto) 0.9 % (0.0-7.0); Hematocrit 28.7 % (36.0-46.0); Hemoglobin 9.6 g/dL (12.2-16.2); Lymphocytes # (auto) 1.5 uL; Lymphocytes % (auto) 8.7 % (10.0-50.0); Mean Corpuscular Hgb Conc. 33.5 g/dL (32.0-36.0); Mean Corpuscular Volume 116.4 fL (80.0-100.0); Monocytes # (auto) 1.7 uL; Monocytes % (auto) 10.3 % (0.0-12.0); Neutrophils # (auto) 13.4 uL; Neutrophils % (auto) 79.1 % (37.0-80.0); Nucleated Red Blood Cells % 0.1 %; Platelet Count (auto) 341 10^3/uL (140-450); Red Blood Cells 2.46 10^6/uL (4.0-5.20); Red Cell Distribution Width 17.1 % (11.8-14.3); White Blood Cell 16.9 10^3/uL (4.4-10.8)
--- NOTE | 2019-04-14 06:20 | NUR ---
PATIENT OFF FLOOR TO SMOKE
--- NOTE | 2019-04-14 06:39 | NUR ---
PATIENT BACK TO FLOOR. NO S/S OF DISTRESS NOTED. PATIENT STATED THAT SHE DID NOT HAVE HER CIGARETTE AND COME BACK TO PAYROLL SECRETARY HER CIGARETTE. PATIENT OFF FLOOR AGAIN NOW.
[2019-04-14 06:40] LABS: Albumin 1.6 g/dL (3.4-5.0); Calcium 7.2 mg/dL (8.5-10.1); Magnesium 1.5 mg/dL (1.6-2.6)
[2019-04-14 06:45] LABS: BUN/Creatinine Ratio 5.3; Bilirubin, Total 13.2 mg/dL (0.2-1.0); Total Protein 5.5 g/dL (6.4-8.2)
[2019-04-14 06:53] LABS: Potassium 2.8 mmol/L (3.5-5.1)
--- NOTE | 2019-04-14 06:55 | NUR ---
HOSPITALIST Called/paged ADDISON GONZALEZ called re CRITICAL LAB POTASSIUM 2.8. Waiting for call back. Continue care.
--- NOTE | 2019-04-14 07:08 | NUR ---
HOSPITALIST returned call BURR MACHINE OPERATOR CARLOS returned call, updated on patient status and reason for call, orders received. POTASSIUM 40 SHERLY PO. ONCE Continue care.
[2019-04-14] MEDS ORDERED: POTASSIUM CHL 20 Meq TABLET PO ONE ×2 (07:15→10:00)
--- NOTE | 2019-04-14 07:30 | NUR ---
Opening Shift Note Assumed care of patient, who is alert and oriented x4. No S/S of distress/SOB or pain. Noted some yellowing of eyes and skin. Bed in lowest position, 2x side rails up. Call light is within reach. Instructed on POC and to call for assist PRN, will continue to monitor for changes Q1hr and PRN.
[2019-04-14 08:00] VITALS: BP 104/56
[2019-04-14] MEDS: PENTOXIFYLLINE 400 MG ER TAB PO SCH ×3 (08:25→17:31)
[2019-04-14 08:30] VITALS: BP 104/56
[2019-04-14] MEDS: FUROSEMIDE 20 MG/2 ML VIAL IV SCH (09:27)
[2019-04-14] MEDS: FAMOTIDINE 20 MG TAB PO SCH (09:28)
[2019-04-14] MEDS: SPIRONOLACTONE 25 MG TAB PO SCH (09:28)
[2019-04-14] MEDS: MAGNESIUM OXIDE 400 MG TAB PO SCH (09:28)
[2019-04-14] MEDS: FOLIC ACID 1 MG TAB PO SCH (09:28)
[2019-04-14] MEDS: THIAMINE HCL 100 MG TAB PO SCH (09:28)
[2019-04-14] MEDS: AZITHROMYCIN 500MG/ 250ML 250 ML IV SCH (09:29)
[2019-04-14] MEDS: MULTIPLE VITAMINS W/ MINERALS TAB PO SCH (09:29)
[2019-04-14] MEDS: MAGNESIUM SULFATE 1GM/100ML 100 ML IV SCH ×3 (10:00→12:00)
[2019-04-14] MEDS ORDERED: POTASSIUM CHLORIDE 40 MEQ, LIDOCAINE 1% (LOCAL ANESTH.) 4 ML in SODIUM CHL 0.9% 100 ML IV ONE (10:00)
--- NOTE | 2019-04-14 10:02 | NUR ---
Patient off unit Patient went to smoke via wheelchair.
--- NOTE | 2019-04-14 10:25 | NUR ---
Pt returned to room
--- NOTE | 2019-04-14 10:33 | NUR ---
Dr. Daly rounding New orders received/carried out.
[2019-04-14] MEDS: LACTULOSE 20Gm/30ML SOLN PO SCH (10:43)
--- NOTE | 2019-04-14 10:51 | NUR ---
ECHO AT BEDSIDE
--- NOTE | 2019-04-14 11:30 | NUR ---
Pt refusing Potassium Patient has potassium level of 2.8. Started to run a potassium IV supplement (K-rider) and patient stated that it burned too much and would like the potassium stopped and IV location replaced. Advised the patient of the possible outcomes of hypokalemia and not replacing potassium. Will attempt new to insert a new IV catheter.
--- NOTE | 2019-04-14 12:00 | NUR ---
IV insertion IV access not obtained, after 2 attempts. Will call PICC line nurse for possible midline insertion.
[2019-04-14] MEDS ORDERED: ALBUMIN 25% 100 ML IV ONE (12:45)
[2019-04-14] MEDS ORDERED: FUROSEMIDE 20 MG/2 ML VIAL IV ONE (12:45)
[2019-04-14 13:15] VITALS: BP 138/68
[2019-04-14] MEDS: MORPHINE SULF INJ 2 MG/ML SYRINGE 1ML IV PRN ×2 (13:42→20:52)
--- NOTE | 2019-04-14 15:45 | NUR ---
IV inserted PICC line nurse Vicki stated that since patient may be discharged tomorrow, a peripheral IV should be inserted instead of a midline. A 20 g peripheral IV will be has been inserted to the left upper arm. Patient tolerated well. Will continue to monitor.
[2019-04-14] MEDS: VANCOMYCIN 1GM/250ML 250 ML IV SCH (16:00)
--- NOTE | 2019-04-14 17:02 | NUR ---
Pt off unit Patient requesting to stop K-rider because she would like to go smoke.
[2019-04-14 17:03] VITALS: BP 109/55
--- NOTE | 2019-04-14 17:30 | NUR ---
Pt returned to room Re-started K-rider at this time. Will continue to monitor.
--- NOTE | 2019-04-14 18:41 | NUR ---
Scheduled antibiotics and magnesium sulfate Not given due to patient refusing this nurse to use IV line to the right forearm. New IV line was started by 1545 and patient still had K-rider from AM that had not finished running.
--- NOTE | 2019-04-14 19:34 | NUR ---
Magnesium sulfate Will be given by [facility] nurse.
--- NOTE | 2019-04-14 19:35 | NUR ---
RECEIVED PATIENT FROM DAY SHIFT RN. PATIENT RESTING IN BED. NO S/S OF DISTRESS NOTED. C/O PAIN @ 11/03. WILL COME BACK FOR MEDICATION LATER WHEN THE TIME IS DUE. POC INSTRUCTED AND ENCOURAGED PATIENT TO CALL FOR INSPECTOR STRUCTURAL BONDING IF NEEDED. BED IN LOWEST POSITION WITH SIDE RAILS UP X 2. CALL BENNETT WITHIN REACH. ALARM ON. CONTINUE TO MONITOR FOR CHANGES Q1H AND PRN.
--- NOTE | 2019-04-14 20:10 | NUR ---
PATIENT OFF FLOOR
--- NOTE | 2019-04-14 20:36 | NUR ---
PATIENT BACK TO FLOOR. NO S/S OF DISTRESS NOTED. CONTINUE CARE.
[2019-04-14] MEDS ORDERED: MAGNESIUM SULFATE 1GM/100ML 300 ML IV ONE (20:40)
--- NOTE | 2019-04-14 21:00 | NUR ---
MEDICATED PATIENT FOR PAIN @ 11/03. CONTINUE TO MONITOR.
[2019-04-14 22:00] VITALS: BP 119/71
--- NOTE | 2019-04-15 01:38 | NUR ---
PATIENT OFF FLOOR
--- NOTE | 2019-04-15 02:05 | NUR ---
PATIENT BACK TO FLOOR. NO S/S OF DISTRESS NOTED. CONTINUE CARE.
[2019-04-15] MEDS: HYDROcodone-ACET 5/325MG TAB PO PRN ×2 (02:10→08:40)
--- NOTE | 2019-04-15 02:10 | NUR ---
MEDICATED PATIENT FOR PAIN @ 11/03. CONTINUE TO MONITOR.
[2019-04-15] MEDS: MAGNESIUM SULFATE 1GM/100ML 100 ML IV SCH ×2 (03:23→04:30)
[2019-04-15] MEDS: MORPHINE SULF INJ 2 MG/ML SYRINGE 1ML IV PRN ×2 (03:24→12:28)
--- NOTE | 2019-04-15 03:30 | NUR ---
PATIENT STILL C/O PAIN @ 7/10 AFTER NORCO, MORPHINE GIVEN ORDERED. CONTINUE TO MONITOR.
[2019-04-15] MEDS: VANCOMYCIN 1GM/250ML 250 ML IV SCH (04:29)
[2019-04-15 05:00] VITALS: BP 109/54
[2019-04-15 06:19] LABS: Basophils # (auto) 0.1 uL; Basophils % (auto) 0.8 % (0.0-2.0); Eosinophils % (auto) 0.9 % (0.0-7.0); Hemoglobin 9.5 g/dL (12.2-16.2); Lymphocytes # (auto) 1.5 uL; Monocytes # (auto) 1.8 uL; Monocytes % (auto) 11.3 % (0.0-12.0); Neutrophils # (auto) 12.4 uL; Platelet Count (auto) 347 10^3/uL (140-450)
[2019-04-15 06:24] LABS: Eosinophils # (auto) 0.2 uL; Hematocrit 29.2 % (36.0-46.0); Lymphocytes % (auto) 9.5 % (10.0-50.0); Mean Corpuscular Hemoglobin 38.3 pg (28.0-32.0); Mean Corpuscular Hgb Conc. 32.5 g/dL (32.0-36.0); Mean Corpuscular Volume 117.8 fL (80.0-100.0); Neutrophils % (auto) 77.5 % (37.0-80.0); Red Blood Cells 2.48 10^6/uL (4.0-5.20); Red Cell Distribution Width 16.9 % (11.8-14.3)
[2019-04-15 06:28] LABS: Calcium 7.7 mg/dL (8.5-10.1); Potassium 3.2 mmol/L (3.5-5.1)
[2019-04-15 06:35] LABS: BUN/Creatinine Ratio 6.8; Bilirubin, Total 13.6 mg/dL (0.2-1.0); Magnesium 2.1 mg/dL (1.6-2.6); Total Protein 5.7 g/dL (6.4-8.2)
[2019-04-15] MEDS: LEVOTHYROXINE SODIUM 25 MCG TAB PO SCH (06:40)
[2019-04-15] MEDS: PIPERACILLIN-TAZO 4.5GM 100 ML IV SCH ×3 (06:40→15:53)
--- NOTE | 2019-04-15 07:25 | NUR ---
Patient off unit To smoke via wheelchair.
--- NOTE | 2019-04-15 07:50 | NUR ---
Patient returned to room No S/S of distress noted. Will continue to monitor.
[2019-04-15 08:00] VITALS: BP 127/68
[2019-04-15 08:30] VITALS: BP 127/68
[2019-04-15] MEDS: FUROSEMIDE 20 MG/2 ML VIAL IV SCH (08:39)
[2019-04-15] MEDS: THIAMINE HCL 100 MG TAB PO SCH (08:41)
[2019-04-15] MEDS: FAMOTIDINE 20 MG TAB PO SCH (08:41)
[2019-04-15] MEDS: FOLIC ACID 1 MG TAB PO SCH (08:41)
[2019-04-15] MEDS: PENTOXIFYLLINE 400 MG ER TAB PO SCH ×2 (08:41→12:29)
[2019-04-15] MEDS: SPIRONOLACTONE 25 MG TAB PO SCH (08:42)
[2019-04-15] MEDS: MULTIPLE VITAMINS W/ MINERALS TAB PO SCH (08:43)
[2019-04-15] MEDS: MAGNESIUM OXIDE 400 MG TAB PO SCH (08:43)
[2019-04-15] MEDS: LACTULOSE 20Gm/30ML SOLN PO SCH (08:43)
[2019-04-15] MEDS ORDERED: ALBUMIN 25% 100 ML IV ONE (09:45)
[2019-04-15] MEDS ORDERED: FLUCONAZOLE 100 MG TAB PO SCH (10:00)
--- NOTE | 2019-04-15 10:40 | NUR ---
Patient off unit Patient went to smoke.
--- NOTE | 2019-04-15 11:06 | NUR ---
Patient has returned to room No S/S of distress noted.
[2019-04-15] MEDS ORDERED: KETOROLAC TROMETH 30 MG/ML 1ML VIAL IV ONE (14:15)
--- NOTE | 2019-04-15 14:35 | NUR ---
Patient off unit Patient went to smoke.
--- NOTE | 2019-04-15 14:41 | NUR ---
Nutrition Follow up Notes Wt.: 97.7 kg as of yesterday Pt's off the floor likely to smoke, per nursing notes during rounds this morning. Pt's no signs of distress noted by RN earlier, currently on 2 gms Na diet with adequate PO intake aeb 80% ave consumed meals (x4) in last 2.5 days. Energy needs: 1950 to 2450 kcal (20-25 kcal/kg BW), 58 to 78 (0.6-0.8 gm/kg BW prot d/t elev ammonia). Will continue to monitor pertinent labs and reassess nutrient need prn Labs: Gluc 67 L, Cl 109 H, K 3.2 L, BUN 5 L, Ca 7.7 L, Tot Niraj 13.6 H, AST 115 H, ALT 160 H; Tpro 5.7 L, Alb 2.0 L; Ammonia 63 H GI: Pt had 3x BM 04/14/19 per sales leader Kenneth Scale: 17, mod risk, skin intact per sales leader. PES Altered nutrition related lab values r/t acute/chronic medical condition aeb hypocalcemia, hyperbil, severe hypoalb elev ammonia Obesity r/t energy input more than body requirement aeb 154% IIBW, BMI 32.27 kg/m2 and increased body adiposity Will continue to monitor PO intake, skin status, pertinent labs and weight trend. F/u in 3 to 5 days. Rec.: 1.) Pls enter order for Hepatic (50 gms pro, 2 gms Na), already e-signed approved by . 2.) Continue close supervision during meals. 2.) If Albumin continues trending down with improved ammonia level, consider Prostat 1 pkt BID. 3.) If LFTs, Tot niraj continue trending up, consider Low Fat in addition to Hepatic diet. 4.) Refer pt to RD for further nutrition education and weight monitoring upon discharge. 5.) Continue current plan of care.
--- NOTE | 2019-04-15 15:14 | NUR ---
Patient has returned to room No S/S of distress noticed upon returning to room
[2019-04-15 16:08] VITALS: BP 123/62
[2019-04-15 17:00] VITALS: BP 115/56
== END 2019-04-15 17:53 | disposition home or self-care (01) | DRG 871 ==
LOC: ER 09:32 → TELE 09:33 → TELE-CENTR 15:58
PROVIDERS: ADMIT Nurse Practitioner Acute Care; ATTEND Internal Medicine
DX: A41.9 Sepsis, unspecified organism (principal); E43 Unspecified severe protein-calorie malnutrition; J18.9 Pneumonia, unspecified organism; K70.11 Alcoholic hepatitis with ascites; E87.6 Hypokalemia; F10.10 Alcohol abuse, uncomplicated; Z71.41 Alcohol abuse counseling and surveillance of alcoholic; F17.210 Nicotine dependence, cigarettes, uncomplicated; Z79.01 Long term (current) use of anticoagulants; K72.90 Hepatic failure, unspecified without coma; K74.60 Unspecified cirrhosis of liver
CPT/HCPCS: 36415; 70491; 71045; 71260; 74176; 74177; 76700; 80053; 80074; 80202; 80307; 80329; 81001; 82140; 82248; 82977; 83605; 83690; 83735; 83880; 84132; 84439; 84443; 84702; 85007; 85025; 85027; 85610; 85730; 86703; 87040; 87070; 87077; 87205; 87804; 87880; 93005; 93306; 93970; G0378; J0696; J1885; J2001; J2543; J3490; J7060; P9047